=== PATIENT | male | born 1990 | race American Indian/Alaskan Native ===

== ENCOUNTER 2016-08-11 14:17 | Emergency (ER) | payer SELFPAY ==
[2016-08-11] MEDS ORDERED: MORPHINE ONE (14:19)
[2016-08-11] MEDS ORDERED: ZOFRAN ONE (14:19)
[2016-08-11] MEDS ORDERED: ZOFRAN IV ONE (14:21)
[2016-08-11] MEDS ORDERED: MORPHINE IV ONE (14:21)
[2016-08-11 15:01] LABS: Hematocrit 49.5 % (35.5-45.6); Hemoglobin 16.7 gm/dl (11.8-15.2); Mean Corpuscular HGB Conc 34 % (32-34); Mean Corpuscular Hemoglobin 30 pg (28-32); Mean Corpuscular Volume 90 fl (84-94); Platelet Count 217 K/mm3 (140-440); Red Cell Distribution Width 13.5 % (13.2-15.2); White Blood Count 8.9 K/mm3 (4.5-11.0)
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
[2016-08-11 15:21] LABS: BUN/Creatinine Ratio 15.45; Blood Urea Nitrogen 17 mg/dL (9-20); Calcium 9.2 mg/dL (8.4-10.2); Carbon Dioxide 20 mmol/L (22-30); Chloride 100.1 mmol/L (98-107); Glucose 128 mg/dL (75-100); Potassium 3.9 mmol/L (3.6-5.0); Sodium 137 mmol/L (137-145)
[2016-08-11 15:22] LABS: Anion Gap 21 mmol/L
[2016-08-11] MEDS ORDERED: TORADOL IV ONE (15:28)
[2016-08-11 15:44] LABS: Basophils % (Manual) 0 % (0.0-1.8); Blastocytes % (Manual) 0 %
[2016-08-11 15:45] LABS: Diff Status Complete; Platelet Estimate Consistent w Auto; Poikilocytosis Few
[2016-08-11 16:56] VITALS: BP 145/90
--- NOTE | 2016-08-12 08:26 | XRay Report ---
KUB: There is an unremarkable distribution of bowel gas. There is no bowel dilatation. No free air identified on the spine view. No soft tissue mass. The bony structures are intact. No foreign body identified. Impression: No pathology identified.
--- NOTE | 2016-08-12 08:28 | XRay Report ---
Left femur: LEFT FEMUR: AP and lateral views of the femur demonstrate normal mineralization and contours for this patient's age. No destructive changes are noted and the adjacent soft tissues are normal. IMPRESSION: [place] LEFT TIBIA/FIBULA: AP and lateral views of the left tibia/fibula demonstrate normal mineralization and contours for this patient's age. No destructive changes are noted and the adjacent soft tissues are normal. IMPRESSION: Normal left tibia/fibula.l left femur.
== END 2016-08-11 16:55 | disposition home or self-care (01) ==
LOC: ED 14:17 → EEVIPCON 14:17 → ED 16:55
DX: S71.102A Unspecified open wound, left thigh, initial encounter (principal); F17.200 Nicotine dependence, unspecified, uncomplicated; F12.10 Cannabis abuse, uncomplicated; W34.00XA Accidental discharge from unspecified firearms or gun, initial encounter; Y93.9 Activity, unspecified; Y92.9 Unspecified place or not applicable; Y99.9 Unspecified external cause status
CPT/HCPCS: 36415; 73552; 73590; 74000; 80048; 85007; 85025; 96374; 96375; 99284; J1885; J2270; J2405

== ENCOUNTER 2018-10-16 01:36 | Emergency (ER) | payer OTHER ==
--- NOTE | 2018-10-16 02:32 | Emergency Department Report ---
- General Chief Complaint: Wound/Laceration Stated Complaint: LEFT HAND LACERATION Time Seen by Provider: 10/16/18 02:18 Source: patient Mode of arrival: Ambulatory Limitations: No Limitations - History of Present Illness Initial Comments: Pt is a 27 yo male who presents to the ED with c/o a laceration to the left middle finger that occurred just [employer]. The patient states he was changing a tire and was using a car florin when the handle to the florin brushed against the finger causing a laceration. He is able to move all digits. He denies any pain. The patient denies any numbness or tingling. He states his last tetanus was three years ago. -: This evening Location: other (left middle finger) Place: outdoors Patient Tetanus UTD: Yes Context: accidental Associated Symptoms: none - Related Data Previous Rx's Medication Instructions Recorded Last Taken Type Oseltamivir Phosphate [Tamiflu] 75 mg PO BID #10 capsule 07/30/18 Unknown Rx Allergies Allergy/AdvReac Type Severity Reaction Status Date / Time No Known Allergies Allergy Verified 07/25/13 16:05 ED Review of Systems ROS: Stated complaint: LEFT HAND LACERATION Other details as noted in HPI Comment: All other systems reviewed and negative ED Past Medical Hx - Past Medical History Previous Medical History?: No - Surgical History Past Surgical History?: No - Social History Smoking Status: Former Smoker Substance Use Type: Alcohol - Medications Home Medications: Home Medications Medication Instructions Recorded Confirmed Last Taken Type Oseltamivir Phosphate [Tamiflu] 75 mg PO BID #10 capsule 07/30/18 Unknown Rx ED Physical Exam - General Limitations: No Limitations General appearance: alert, in no apparent distress - Head Head exam: Present: atraumatic, normocephalic - Eye Eye exam: Present: normal appearance - ENT ENT exam: Present: mucous membranes moist - Respiratory Respiratory exam: Absent: respiratory distress - Cardiovascular Cardiovascular Exam: Present: regular rate - Extremities Exam Extremities exam: Present: full ROM, normal capillary refill, other (superficial 1.5 cm laceration to the amador surface of the left middle finger over the PIP joint, no tendon involvement, neurovascularly intact, FROM of all digits). Absent: tenderness, joint swelling - Neurological Exam Neurological exam: Present: alert, oriented X3 - Psychiatric Psychiatric exam: Present: normal affect, normal mood - Skin Skin exam: Present: warm, dry ED Course Vital Signs 10/16/18 01:40 Temperature 97.8 F Pulse Rate 112 H Respiratory 20 Rate Blood Pressure 151/90 O2 Sat by Pulse 94 Oximetry - Laceration /Wound Repair Left Palm Finger Wound Location: upper extremity (left middle finger, palmar surface, superficial over the DIP) Wound Explored: no foreign body removed Irrigated w/ Saline (ccs): 2 Betadine Prep?: Yes Anesthesia: 1% Lidocaine Volume Anesthetic (ccs): 2 Wound Debrided: minimal Wound Repaired With: sutures Suture Size/Type: 4:0 Number of Sutures: 3 Layer Closure?: No Progress: superficial 1.5 cm laceration to the left middle finger on the palmar aspect overlying the PIP, closed with 4-0 prolene, [address] ED Medical Decision Making - Medical Decision Making Pt presents with laceration to left middle finger. No foreign body, FROM of all digits. closed with 4-0 prolene, [address] Advised pt to follow up with PCP or return to ED for suture removal in 7 days. Advised pt to return to ED if begin experiencing fever, purulent discharge, erythema, edema, or severe pain. Critical care attestation.: If time is entered above; I have spent that time in minutes in the direct care of this critically ill patient, excluding procedure time. ED Disposition Clinical Impression: Laceration of finger Qualifiers: Encounter type: initial encounter Finger: middle finger Damage to nail status: without damage Foreign body presence: without foreign body Laterality: left Qualified Code(s): S61.213A - Laceration without foreign body of left middle finger without damage to nail, initial encounter Disposition: TO HOME OR SELFCARE Is pt being admited?: No Does the pt Need Aspirin: No Condition: Stable Instructions: Finger Laceration (ED) Additional Instructions: Follow up with primary care or emergency room in the next 7 days for suture removal. Return to the emergency room if new or worsening symptoms including fever, purulent drainage, redness, or increased swelling. Time of Disposition: 03:18 Print Language: SWISS
[2018-10-16 03:47] VITALS: BP 148/96
== END 2018-10-16 03:37 | disposition home or self-care (01) ==
LOC: ED 01:36
DX: S61.213A Laceration without foreign body of left middle finger without damage to nail, initial encounter (principal); Z87.891 Personal history of nicotine dependence; W22.8XXA Striking against or struck by other objects, initial encounter; Y93.89 Activity, other specified; Y92.410 Unspecified street and highway as the place of occurrence of the external cause; Y99.8 Other external cause status

== ENCOUNTER 2019-01-10 17:08 | Emergency (ER) | payer SELFPAY ==
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
--- NOTE | 2019-01-10 18:21 | XRay Report ---
PROCEDURE: XR FINGER(S) 2+V RT TECHNIQUE: AP, lateral and oblique images were obtained. HISTORY: pain/swelling of rt hand-2nd digit COMPARISONS: None FINDINGS: No fracture or dislocation visualized. Bone density and joint spaces appear normal. No radiopaque for eign bodies identified. Diffuse soft tissue swelling is seen. IMPRESSION: There is diffuse soft tissue swelling. No evidence of fracture or dislocation.. This document is electronically signed by Abran Brewer MD., January 10 2019 07:19:14 PM ET
[2019-01-10] MEDS ORDERED: ROCEPHIN IM ONE (19:16)
[2019-01-10] MEDS ORDERED: DELTASONE PO ONE (19:16)
[2019-01-10] MEDS ORDERED: XYLOCAINE 1% MPF 5 mL INFILTRATI ONE (19:16)
[2019-01-10] MEDS ORDERED: IBUPROFEN PO ONE (19:17)
[2019-01-10] MEDS ORDERED: TRIPLE ANTIBIOTIC TP ONE (19:45)
--- NOTE | 2019-01-10 19:46 | Emergency Department Report ---
Minor Respiratory - HPI Chief Complaint: Extremity Injury, Upper Stated Complaint: RT HAND INJURY/CON Time Seen by Provider: 01/10/19 17:14 Duration: 3 Days Pain Location: Chest Severity: mild Minor Respiratory: Yes Able to Tolerate Fluids, Yes Cough, Yes Chest Pain (cough), Yes Shortness of Breath (cough), Yes Fever, No Rhinorrhea, No Sore Throat, No Ear Pain, No Sick Contacts, No Hemoptysis Other History: She is a 28-year-old male who comes to the ER complaining of cough, cold and congestion. He also complains of finger pain. Patient has been sick for about 3 days. He denies fever and chills at home. He is ambulatory, nontoxic and taking by mouth. He has seen nobody for his illness. He has taken nothing at home to make himself feel better. He admits to occasional cigarettes, alcohol and wheat. Patient denies any major medical problems and is taking no prescribed home medications ED Review of Systems ROS: Stated complaint: RT HAND INJURY/CON Other details as noted in HPI Comment: All other systems reviewed and negative ED Past Medical Hx - Past Medical History Previous Medical History?: No - Surgical History Past Surgical History?: No - Family History Family history: no significant - Social History Smoking Status: Former Smoker Substance Use Type: Alcohol - Medications Home Medications: Home Medications Medication Instructions Recorded Confirmed Last Taken Type Azithromycin [Zithromax Z-MORIS] 250 mg PO DAILY #6 tablet 01/10/19 Unknown Rx Benzonatate [Tessalon Perles] 100 mg PO Q12H PRN #20 capsule 01/10/19 Unknown Rx Fluticasone [Flonase] 1 spray NS QDAY #1 bottle 01/10/19 Unknown Rx predniSONE [Deltasone] 20 mg PO DAILY #5 tablet 01/10/19 Unknown Rx Minor Respiratory Exam - Exam General: Vital signs noted. No distress. Alert and acting appropriately. HEENT: Yes Moist Mucous Membranes, No Pharyngeal Erythema, No Pharyngeal Exudates, No Rhinorrhea, No Conjuctival Injection, No Frontal Tenderness, No Maxillary Tenderness Ear: Neither TM Bulge, Neither TM Erythema, Neither EAC Pain, Neither EAC Discharge Neck: Yes Supple, No Adenopathy Lungs: Yes Good Air Exchange, No Wheezes, No Ronchi, No Stridor, No Cough, No Labored Respirations, No Retractions, No Use of Accessory Muscles, No Other Abnormal Lung Sounds Heart: Yes Regular, Yes Murmur Abdomen: Yes Normal Bowel Sounds, No Tenderness, No Peritoneal Signs Skin: No Rash, No Edema Neurologic: Alert and oriented, no deficits. Musculoskeletal: Unremarkable. ED Course Vital Signs 01/10/19 01/10/19 17:19 19:28 Temperature 100.2 F H Pulse Rate 105 H Respiratory 18 20 Rate Blood Pressure 155/86 [Left] O2 Sat by Pulse 99 Oximetry - I & D finger Type of Procedure: Simple Blade Size: 11 I & D Procedure: betadine prep Progress: abscess of finger opened without difficulty pt tolerated well ED Medical Decision Making - Radiology Data Radiology results: report reviewed, image reviewed - Medical Decision Making Vital Signs 01/10/19 06 17:19 19:28 Temperature 100.2 F H Pulse Rate 105 H Respiratory 18 20 Rate Blood Pressure 155/86 [Left] O2 Sat by Pulse 99 Oximetry xray noted non ill appearing taking po no wheezing medicated for fever and it did dec. no pmh wound care medicated for urti dc home with dc plan of care and follow up. Critical care attestation.: If time is entered above; I have spent that time in minutes in the direct care of this critically ill patient, excluding procedure time. ED Disposition Clinical Impression: Upper respiratory infection, Cellulitis, finger Disposition: DC-01 TO HOME OR SELFCARE Is pt being admited?: No Does the pt Need Aspirin: No Condition: Stable Instructions: Cellulitis (ED), Upper Respiratory Infection (ED) Additional Instructions: DIET TOLERATED MEDS ORDERED TODAY IN ER FOLLOW INSTRUCTIONS ON THE BOTTLE FOLLOW UP PCP WITHIN 48 HOURS TO ENSURE YOU ARE GETTING BETTER ACTIVITY TOLERATED MOTRIN OR TYLENOL FOR PAIN OR FEVER RETURN TO THE ER FOR WORSENING SYMPTOMS NOT RELIEVED BY YOUR MEDICATIONS. KEEP FINGER CLEAN AND DRY Prescriptions: predniSONE [Deltasone] 20 mg PO DAILY #5 tablet Fluticasone [Flonase] 1 spray NS QDAY #1 bottle Benzonatate [Tessalon Perles] 100 mg PO Q12H PRN #20 capsule PRN Reason: Cough Azithromycin [Zithromax Z-MORIS] 250 mg PO DAILY #6 tablet Referrals: EMIGDIO SMITH MD [Primary Care Provider] - 3-5 Days Time of Disposition: 19:45
--- NOTE | 2019-01-10 20:21 | XRay Report ---
PROCEDURE: XR CHEST ROUTINE 2V TECHNIQUE: PA and lateral chest radiographs were obtained. HISTORY: fever COMPARISONS: None. FINDINGS: Heart: Normal. Mediastinum/Vessels: Normal. Lungs/Pleural space: There is bibasilar atelectasis and/or infiltrate worse on the right. There are no effusions or pneumothoraces.. Bony thorax: No acute osseous abnormality. IMPRESSION: The heart size is normal.. There is bibasilar atelectasis and/or infiltrate worse on the right. There are no effusions or pneumo thoraces.. This document is electronically signed by Manuel Wilhelm MD., January 10 2019 09:19:22 PM ET
[2019-01-10 20:50] VITALS: BP 144/73
== END 2019-01-10 21:00 | disposition home or self-care (01) ==
LOC: ED 17:08
DX: J06.9 Acute upper respiratory infection, unspecified (principal); L03.011 Cellulitis of right finger; Z87.891 Personal history of nicotine dependence
CPT/HCPCS: 10060; 71046; 73140; 96372; 99283; J0696; J7512; A6250